=== PATIENT | female | born 1950 | race Caucasian/White ===

== ENCOUNTER 2019-06-13 13:17 | Inpatient (IN) | payer MEDICARE, OTHER ==
[~2019-06-13] VITALS: Ht 157.5 cm; Wt 120.2 kg
[2019-06-13] VITALS (8 sets, daily range): BP systolic 103–130; BP diastolic 58–73
--- NOTE | 2019-06-13 13:28 | NUR ---
PT BIB DAUGHTER C/O CHEST PAIN AND SOB SINCE SUNDAY. SENT BY PMD FOR EVAL. PT IS AAOX4, NOT IN RESPIRATORY DISTRESS ,HOOKED TO HANDY WORKER, KEPT RESTED AND COMFORTABLE, WILL CONTINUE TO MONITOR.
[2019-06-13] MEDS ORDERED: NITROGLYCERIN PACKET 1 GM PACKET TD ONE (13:30)
[2019-06-13] MEDS ORDERED: ASPIRIN 325 MG TABLET PO ONE (13:30)
--- NOTE | 2019-06-13 13:31 | NUR ---
SEEN AND EXAMINED BY DR. STEWARD.
--- NOTE | 2019-06-13 13:40 | NUR ---
IV LINE ESTABLISHED, BLOOD DRAWN AND SENT TO LAB.
[2019-06-13] MEDS ORDERED: NITROGLYCERIN PACKET 1 GM PACKET ONE (13:41)
[2019-06-13] MEDS ORDERED: ASPIRIN 325 MG TABLET ONE (13:41)
--- NOTE | 2019-06-13 13:45 | NUR ---
LIBRARY MEDIA SPECIALIST AT BEDSIDE FOR XRAY.
[2019-06-13 13:46] LABS: BASOPHILS # (AUTO) 0.1 /CMM (0.0-0.2); BASOPHILS % (AUTO) 0.8 % (0.0-2.0); HEMATOCRIT 46 % (33-45); HEMOGLOBIN 14.9 g/dL (11.5-14.8); LYMPHOCYTES # (AUTO) 1.8 /CMM (0.8-4.8); LYMPHOCYTES % (AUTO) 20.9 % (20.0-44.0); MEAN CORPUSCULAR HGB CONC 33 g/dl (31.0-36.0); MEAN CORPUSCULAR VOLUME 84 fL (82-100); MONOCYTES # (AUTO) 0.7 /CMM (0.1-1.30); MONOCYTES % (AUTO) 7.5 % (2.0-12.0); NEUTROPHILS % (AUTO) 67.8 % (43.0-81.0); PLATELET COUNT (AUTO) 203 /CMM (150-450); WHITE BLOOD COUNT (AUTO) 8.8 K/uL (4.3-11.0)
[2019-06-13 13:57] LABS: CALCIUM, SERUM 9.5 mg/dL (8.5-10.1); CARBON DIOXIDE 29 mmol/L (21-32); CHLORIDE 103 mmol/L (98-107); CREATININE 0.8 mg/dL (0.6-1.3); GLUCOSE 106 mg/dL (74-106); SODIUM SERUM 140 mmol/L (136-145); UREA NITROGEN, BLOOD 11 mg/dL (7-18)
[2019-06-13 14:09] LABS: ALANINE AMINOTRANSFERASE 14 U/L (12-78); ALBUMIN 3.4 g/dL (3.4-5.0); ALKALINE PHOSPHATASE 67 U/L (46-116); ASPARTATE AMINOTRANSFERASE 15 U/L (15-37); B-TYPE NATRIURETIC PEPTIDE 178 PG/ML (0-125); BILIRUBIN,DIRECT 0.1 mg/dL (0.0-0.2); BILIRUBIN,TOTAL 0.3 mg/dL (0.2-1.0)
[2019-06-13] MEDS ORDERED: SITA50TA PO (14:46)
[2019-06-13] MEDS ORDERED: METO50TA16 PO (14:46)
[2019-06-13] MEDS ORDERED: SIMV-46 PO (14:46)
[2019-06-13] MEDS ORDERED: CARB1TAB19 PO (14:46)
[2019-06-13] MEDS ORDERED: CETI-108 PO (14:46)
[2019-06-13] MEDS ORDERED: DICL100G16 TP (14:46)
[2019-06-13] MEDS ORDERED: FURO40TA5 PO (14:46)
[2019-06-13] MEDS ORDERED: CELE-85 PO (14:46)
[2019-06-13] MEDS ORDERED: DABI150C PO (14:46)
[2019-06-13] MEDS ORDERED: SEMA1PEN SQ (14:46)
[2019-06-13] MEDS ORDERED: AMLO1CAP6 PO (14:46)
[2019-06-13] MEDS ORDERED: METF-440 PO (14:46)
[2019-06-13] MEDS ORDERED: ERGO500014 PO (14:46)
[2019-06-13] MEDS ORDERED: FLUT1DIS3 IH (14:46)
[2019-06-13] MEDS ORDERED: ASPI-1152 PO (14:46)
[2019-06-13] MEDS ORDERED: OMEP20CA15 PO (14:46)
[2019-06-13] MEDS ORDERED: OXYB5TAB16 PO (14:46)
[2019-06-13] MEDS ORDERED: ALBUTEROL FS 2.5 MG/0.5 ML VIAL.NEB NEB ONE (15:00)
[2019-06-13] MEDS ORDERED: IPRATROPIUM NEB FS 0.5 MG/2.5 ML AMPUL.NEB NEB ONE (15:00)
[2019-06-13] MEDS ORDERED: DEXAMETHASONE SOD PHOSPHATE 10 MG/ML VIAL IV ONE (15:00)
[2019-06-13] MEDS ORDERED: DEXAMETHASONE SOD PHOSPHATE 10 MG/ML VIAL ONE (15:00)
[2019-06-13] MEDS ORDERED: IPRATROPIUM NEB FS 0.5 MG/2.5 ML AMPUL.NEB ONE (15:07)
[2019-06-13] MEDS ORDERED: ALBUTEROL FS 2.5 MG/0.5 ML VIAL.NEB ONE (15:07)
--- NOTE | 2019-06-13 15:11 | NUR ---
RT AT BEDSIDE FOR BREATHING TREATMENT.
--- NOTE | 2019-06-13 15:38 | NUR ---
PT IS WHEELED TO CT SCAN VIA [facility].
[2019-06-13] MEDS ORDERED: IOHEXOL-350 100 ML VIAL IV ONE (15:45)
[2019-06-13] MEDS ORDERED: CT SWABBABLE VALVE TRANS SET 1 EA INFUS.SET MC ONE (15:46)
[2019-06-13] MEDS ORDERED: IV NS 0.9% 250 ML IV ONE (15:46)
--- NOTE | 2019-06-13 16:05 | NUR ---
NURSING SUP 321-1.
[2019-06-13] MEDS ORDERED: IV NS 0.9% 500 ML BAG IV ONE (16:30)
--- NOTE | 2019-06-13 16:33 | NUR ---
NURSING SUP GAVE 259 ICU.
--- NOTE | 2019-06-13 16:43 | NUR ---
CALLED ICU FOR REPORT, RN NOT AVAILABLE WILL CALL BACK AFTER 5 TO 7 MINS PER ICU HOME HEALTH NURSE.
[2019-06-13] MEDS: ENOXAPARIN SODIUM 120 MG/0.8 ML DISP.SYRIN SQ SCH (16:47)
--- NOTE | 2019-06-13 16:58 | NUR ---
Report given to LILLIAN Baez ICU [id number] for BARRON.
--- NOTE | 2019-06-13 17:30 | NUR ---
RN NOTE 1720: Admitted 69y/o female patient from ED for bilateral PE. A/Ox3, Setswana speaking able to understand Kenyan well. Rendered skin assessment with Deena R, intact. Refused to remove bra and underwear. No CP, SOB noted, on 4LPM of O2 via oxymask, 93% sat. 2PIVs intact. Following up with ER nurse for the admitting orders. SR with PVCs 80's. 1730: S/E by dr. Gregg, with order for echo.
--- NOTE | 2019-06-13 18:17 | NUR ---
RN NOTE Spoke with Dr. York and given admitting orders, patient refused to have Nicotine patch, said she quit last month and never smoked since and verbalized does not need the patch. Placed on cardiac diet, ordered from kitchen.
[2019-06-13] MEDS ORDERED: DEXTROSE 50%-WATER 50 ML DISP.SYRIN IV PRN (18:30)
[2019-06-13] MEDS ORDERED: CLONIDINE HCL 0.1 MG TABLET PO PRN (18:30)
[2019-06-13] MEDS ORDERED: ALBUTEROL FS 2.5 MG/0.5 ML VIAL.NEB NEB PRN (18:30)
[2019-06-13] MEDS ORDERED: ONDANSETRON HCL/PF 4 MG/2 ML VIAL IV PRN (18:30)
[2019-06-13] MEDS ORDERED: IPRATROPIUM NEB FS 0.5 MG/2.5 ML AMPUL.NEB NEB PRN (18:30)
[2019-06-13] MEDS ORDERED: ACETAMINOPHEN 325 MG TABLET PO PRN (18:30)
[2019-06-13] MEDS: BLOOD SUGAR DIAGNOSTIC 1 EACH STRIP IN SCH ×2 (18:34→21:49)
--- NOTE | 2019-06-13 20:39 | NUR ---
ICU/RN OPENING NOTE RECEIVED PATIENT A/O X4 POLISH AND SAMI SPEAKER. CURRENTLY IN NO SIGN OF ANY DISTRESS. PATIENT IS IN 5L OF 02 WITH COOL AEROSOL SATURATING AT 90%. WITH NO SIGN OF ANY SOB. PATIENT IS SR HR AT 93 WITH OCCASIONAL PVC. IV ON THE RT HAND #20 S/L AND RAC #18. PATIENT ABLE TO AMBULATE SO BEDSIDE COMMODE AT BEDSIDE. ALL NEEDS MET WILL CONTINUE TO MONITOR PATIENT THROUGHOUT SHIFT.
[2019-06-13] MEDS: METOPROLOL TARTRATE 50 MG TABLET PO SCH (21:49)
[2019-06-13] MEDS: ATORVASTATIN 40 MG TABLET PO SCH (21:49)
[2019-06-13] MEDS: AMLODIPINE BESYLATE 5 MG TABLET PO SCH (21:49)
[2019-06-13] MEDS: INSULIN REGULAR, HUMAN 100 UNIT/ML 3 ML VIAL SQ PRN (21:59)
[2019-06-14] VITALS (20 sets, daily range): BP systolic 95–137; BP diastolic 53–76
[2019-06-14] MEDS ORDERED: ENOXAPARIN SODIUM 60 MG/0.6 ML DISP.SYRIN SQ ONE (05:33)
[2019-06-14] MEDS: ENOXAPARIN SODIUM 120 MG/0.8 ML DISP.SYRIN SQ SCH ×2 (05:35→17:11)
--- NOTE | 2019-06-14 07:22 | NUR ---
ICU/RN CLOSING PATIENT A/O X4 KISWAHILI AND SWEDISH SPEAKER. CURRENTLY IN NO SIGN OF ANY DISTRESS. PATIENT IS IN 6L OF 02 WITH COOL AEROSOL SATURATING AT 92%. WITH NO SIGN OF ANY SOB. PATIENT IS SR HR AT 82. IV ON THE RT HAND #20 S/L AND RAC #18. PATIENT ABLE TO AMBULATE TO BEDSIDE COMMODE AT BEDSIDE. ALL NEEDS MET. ENDORSED PATIENT TO MORNING SHIFT NURSE FOR BARRON.
[2019-06-14] MEDS: PANTOPRAZOLE 40 MG TABLET.DR PO SCH (07:50)
[2019-06-14] MEDS: BLOOD SUGAR DIAGNOSTIC 1 EACH STRIP IN SCH ×4 (07:51→21:55)
[2019-06-14] MEDS: FENOFIBRATE NANOCRYS (145 MG) 145 MG TABLET PO SCH (08:13)
[2019-06-14] MEDS: FLUTICASONE/VILANTEROL 1 EACH BLST.W.DEV IH SCH (08:13)
[2019-06-14] MEDS: METOPROLOL TARTRATE 50 MG TABLET PO SCH ×2 (08:14→21:10)
[2019-06-14] MEDS: AMLODIPINE BESYLATE 5 MG TABLET PO SCH (08:14)
[2019-06-14] MEDS: LISINOPRIL (10MG) 10 MG TABLET PO SCH (08:15)
[2019-06-14] MEDS: INSULIN REGULAR, HUMAN 100 UNIT/ML 3 ML VIAL SQ PRN ×3 (08:17→21:58)
[2019-06-14 10:36] LABS: ALBUMIN 3.2 g/dL (3.4-5.0); BILIRUBIN,TOTAL 0.3 mg/dL (0.2-1.0); CALCIUM, SERUM 9.7 mg/dL (8.5-10.1); POTASSIUM 3.9 mmol/L (3.5-5.1); TOTAL PROTEIN, SERUM 7.7 g/dL (6.4-8.2)
[2019-06-14 10:50] LABS: BASOPHILS % (AUTO) 0.1 % (0.0-2.0); HEMATOCRIT 45 % (33-45); HEMOGLOBIN 14.4 g/dL (11.5-14.8); LYMPHOCYTES # (AUTO) 1.1 /CMM (0.8-4.8); LYMPHOCYTES % (AUTO) 13.6 % (20.0-44.0); MEAN CORPUSCULAR HGB CONC 32 g/dl (31.0-36.0); MEAN CORPUSCULAR VOLUME 84 fL (82-100); MONOCYTES # (AUTO) 0.3 /CMM (0.1-1.30); MONOCYTES % (AUTO) 4.2 % (2.0-12.0); NEUTROPHILS # (AUTO) 6.7 /CMM (1.8-8.9); NEUTROPHILS % (AUTO) 82.1 % (43.0-81.0); PLATELET COUNT (AUTO) 234 /CMM (150-450); RED BLOOD CELL COUNT(AUTO) 5.35 MIL/uL (4.0-5.2); WHITE BLOOD COUNT (AUTO) 8.1 K/uL (4.3-11.0)
--- NOTE | 2019-06-14 13:25 | NUR ---
Called Dr. York to notify of patient's temp 99F oral + patient request for "medication to help her sleep". Received medication orders for ambien 10mg PO QHS, ativan 0.5mg PO PRN q8hr, azithromax 500mg daily x3 days and pulmonary consult
[2019-06-14] MEDS ORDERED: LORAZEPAM 0.5 MG TABLET PO PRN (14:00)
[2019-06-14] MEDS: AZITHROMYCIN 250 MG TABLET PO SCH (14:04)
--- NOTE | 2019-06-14 17:30 | NUR ---
patient transferred to TELE 112-2 per ACLS protocol with receiving RN July at bedside, attached patient to 5L O2 via nasal cannula, no SOB noted, belongings verified, dentures in mouth of patient at this time, ambulated to restroom, medications given to nurse, patient instructed to call for help, call light provided, bed alarm on, daughter aware of downgrade
--- NOTE | 2019-06-14 17:45 | NUR ---
STRETCHER AND DRIER NOTES RECEIVED PT FROM ICU VIA WHEELCHAIR AT 1735. PT IS AWAKE, A/OX4, AMBULATORY. SALVADOREAN SPEAKING BUT CAN UNDERSTAND AND SPEAK PAKISTANI. PT ON SUPPLEMENTARY OXYGEN AT 5L VIA NC, WITH NO ACUTE RESPIRATORY DISTRESS NOTED. PT DENIES ANY PAIN OR DISCOMFORT AT THIS TIME. HOOKED ON TELEMONITORING SR 88. PIVS TO R HAND G20 AND RACG18, BOTH FLUSHED WITH NS, INTACT AND OPERATIONAL. CALL LIGHT KEPT WITHIN REACH. PT KEPT COMFORTABLE IN BED. PT'S BED IN LOWEST, LOCKED POSITION WITH SR X2. WILL CONTINUE PLAN OF CARE.
--- NOTE | 2019-06-14 18:51 | NUR ---
BRUSH LOADER AND HANDLE ATTACHER CLOSING NOTES PT REMAIN IN BED, AWAKE, A/OX4. MONTSERRATIAN SPEAKING BUT CAN UNDERSTAND AND SPEAK LATVIAN. PT ON SUPPLEMENTARY OXYGEN AT 5L VIA NC, WITH NO ACUTE RESPIRATORY DISTRESS NOTED. PT DENIES ANY PAIN OR DISCOMFORT AT THIS TIME. ON TELEMONITORING SR 90. PIVS TO R HAND G20 AND RACG18, BOTH FLUSHED WITH NS, INTACT AND OPERATIONAL. ALL NEEDS AND CARE ATTENDED. CALL LIGHT KEPT WITHIN REACH. PT KEPT COMFORTABLE IN BED. PT'S BED IN LOWEST, LOCKED POSITION WITH SR X2. WILL ENDORSE TO INCOMING NIGHT NURSE FOR BARRON.
[2019-06-14] MEDS: ATORVASTATIN 40 MG TABLET PO SCH (21:11)
[2019-06-14] MEDS: ZOLPIDEM TARTRATE 10 MG TABLET PO PRN (22:10)
[2019-06-15] VITALS: BP 135/76
[2019-06-15 04:00] VITALS: BP_SYST 131; BP_SYST 135; BP_DIAS 69; BP_DIAS 76
[2019-06-15] MEDS: ENOXAPARIN SODIUM 120 MG/0.8 ML DISP.SYRIN SQ SCH (07:04)
[2019-06-15 08:00] VITALS: BP 135/80
[2019-06-15] MEDS: FENOFIBRATE NANOCRYS (145 MG) 145 MG TABLET PO SCH (08:14)
[2019-06-15] MEDS: LISINOPRIL (10MG) 10 MG TABLET PO SCH (08:14)
[2019-06-15] MEDS: BLOOD SUGAR DIAGNOSTIC 1 EACH STRIP IN SCH ×4 (08:14→21:43)
[2019-06-15] MEDS: METOPROLOL TARTRATE 50 MG TABLET PO SCH ×2 (08:15→21:14)
[2019-06-15] MEDS: PANTOPRAZOLE 40 MG TABLET.DR PO SCH (08:15)
[2019-06-15] MEDS: FLUTICASONE/VILANTEROL 1 EACH BLST.W.DEV IH SCH (08:16)
[2019-06-15] MEDS ORDERED: ANESTHESIA TRAY IN PYXIS 1 EA TRAY MC ONE (11:57)
[2019-06-15 12:00] VITALS: BP 130/70
[2019-06-15] MEDS: AZITHROMYCIN 250 MG TABLET PO SCH (15:25)
[2019-06-15 16:00] VITALS: BP 125/65
[2019-06-15] MEDS: DABIGATRAN ETEXILATE MESYLATE 150 MG CAPSULE PO SCH (17:45)
[2019-06-15] MEDS: INSULIN REGULAR, HUMAN 100 UNIT/ML 3 ML VIAL SQ PRN ×2 (17:46→21:46)
--- NOTE | 2019-06-15 19:00 | NUR ---
video game animator opening notes Received Pt from morning nurse. Pt is alert and orientedX4. Pt is laying in bed comfortably watching TV. Respiration is normal in 2 L NC. No SOB. No S/S of distress noted. IV sites at R hand # 20 is clean, intact, patent and SL. Tele monitor showed SR HR at 80. Pt is able to ambulate with a steady gait. Safety precautions is maintained. Bed at low position, brakes locked, side rails upX2 and call light is within reach. Will continue to monitor.
--- NOTE | 2019-06-15 19:35 | NUR ---
RECEIVED ORDER TO DO ABG ON PATIENT AFTER THEY HAVE BEEN ON ROOM AIR FOR 30 MINS. WHEN ENTERING THE ROOM PATIENT WAS ON OXYGEN. INFORMED MY RN THAT PT WAS DESATURATING TO 87 ON ROOM AIR. ABG NOT DONE AT THIS TIME. RN CONTACTING MD AT THIS TIME. CHARGE NURSE AWARE.
--- NOTE | 2019-06-15 19:40 | NUR ---
machine shop helper notes Called and Informed Dr. Woods regarding ABG order. Informed MD that Pt is on 2 L NC O2 SAT AT 92-95% right now. Per am nurse and RT, Pt can't be on room air 30 minutes to get ABG done. Pt desat to 87% right away. MD order to do ABG on 2 L NC stat. MD also order for case repairer that Pt has to be on oxygen at home when discharge because Pt can't tolerated room air. Charge nurse is aware and informed. Order read back. Order carried out. Will continue to monitor.
[2019-06-15 20:00] VITALS: BP 117/57
[2019-06-15 20:03] LABS: ABG BASE EXCESS 3.4 mmol/L; ABG OXYGEN SATURATION 88.9 % (92.0-98.5); ABG PCO2 43.8 mmHg (35.0-45.0); ABG PH 7.428 (7.350-7.450); ABG PO2 54.4 mmHg (75.0-100.0); AaDO2 93.6 mmHg; COHb 0.6 % (0.5-1.5); MetHb 0.5 % (0.0-1.5); O2Hb 87.9 % (94.0-97.0); SITE, ABG Right Radial; VENT MODE, BG Nasal Cannula
--- NOTE | 2019-06-15 20:12 | NUR ---
NEW ORDERS FOR ABG TO BE ON OXYGEN WERE PUT IN. ABG WAS DONE AT THIS TIME. WILL CONT TO MONITOR PT.
[2019-06-15] MEDS: ATORVASTATIN 40 MG TABLET PO SCH (21:13)
[2019-06-16] VITALS: BP 123/63
[2019-06-16] MEDS: ZOLPIDEM TARTRATE 10 MG TABLET PO PRN ×2 (00:29→22:35)
--- NOTE | 2019-06-16 00:29 | NUR ---
water reclamation systems operator notes Pt is complaining of having problem sleeping and requesting a sleeping pill. Administered ambien 10 mg as ordered for sleeping per Pt request. Safety precautions is maintained. Will continue to monitor.
[2019-06-16 04:00] VITALS: BP 113/63
--- NOTE | 2019-06-16 06:41 | NUR ---
wood and wood products labourer closing notes Pt is resting in bed comfortably. Pt is alert and orientedX4. Respiration is normal in 2 L NC. No SOB. No S/S of distress noted. IV sites at right hand # 20 is clean, intact, patent and SL. Tele monitor showed SR HR at 78. Routine meds were given as ordered. Kept Pt clean, dry and comfortable. Safety precautions is maintained. Bed at low position, brakes locked, side rails upX2 and call light is within reach. Will endorse to morning nurse for BARRON.
--- NOTE | 2019-06-16 07:25 | NUR ---
RN OPENING NOTES RECEIVED PATIENT IN BED, AWAKE, VERBALLY RESPONSIVE AND ABLE TO MAKE NEEDS KNOWN. DENIES ANY PAIN OR DISCOMFORT AT THE MOMENT. ON OXYGEN 2L VIA NASAL CANNULA, SATURATING 93%. NO SOB NOTED. ON TELE MONITOR HR 92. IV ACCESS ON R HAND #20, INTACT, PATENT AND FLUSHED WELL. SAFETY MEASURES IN PLACED, BED IN LOWEST POSITION AND LOCKED. CALL LIGHT WITHIN REACH. WILL CONTINUE TO MONITOR
[2019-06-16 07:56] LABS: BASOPHILS # (AUTO) 0.1 /CMM (0.0-0.2); BASOPHILS % (AUTO) 0.9 % (0.0-2.0); EOSINOPHILS % (AUTO) 2.8 % (0.0-6.0); HEMATOCRIT 47 % (33-45); LYMPHOCYTES # (AUTO) 1.8 /CMM (0.8-4.8); LYMPHOCYTES % (AUTO) 25.6 % (20.0-44.0); MEAN CORPUSCULAR HGB CONC 32 g/dl (31.0-36.0); MEAN CORPUSCULAR VOLUME 84 fL (82-100); MONOCYTES # (AUTO) 0.5 /CMM (0.1-1.30); MONOCYTES % (AUTO) 7.1 % (2.0-12.0); NEUTROPHILS # (AUTO) 4.6 /CMM (1.8-8.9); NEUTROPHILS % (AUTO) 63.6 % (43.0-81.0); PLATELET COUNT (AUTO) 214 /CMM (150-450); RED BLOOD CELL COUNT(AUTO) 5.57 MIL/uL (4.0-5.2); WHITE BLOOD COUNT (AUTO) 7.2 K/uL (4.3-11.0)
[2019-06-16 08:00] VITALS: BP 112/74
[2019-06-16] MEDS: BLOOD SUGAR DIAGNOSTIC 1 EACH STRIP IN SCH ×4 (08:01→22:27)
[2019-06-16 08:13] LABS: ALBUMIN 3.1 g/dL (3.4-5.0); BILIRUBIN,TOTAL 0.4 mg/dL (0.2-1.0); CREATININE 0.7 mg/dL (0.6-1.3); POTASSIUM 3.8 mmol/L (3.5-5.1); TOTAL PROTEIN, SERUM 7.2 g/dL (6.4-8.2)
[2019-06-16] MEDS: PANTOPRAZOLE 40 MG TABLET.DR PO SCH (08:13)
[2019-06-16 08:17] LABS: CALCIUM, SERUM 8.8 mg/dL (8.5-10.1)
[2019-06-16] MEDS: LISINOPRIL (10MG) 10 MG TABLET PO SCH (08:18)
[2019-06-16] MEDS: FENOFIBRATE NANOCRYS (145 MG) 145 MG TABLET PO SCH (08:18)
[2019-06-16] MEDS: METOPROLOL TARTRATE 50 MG TABLET PO SCH ×2 (08:18→22:27)
[2019-06-16] MEDS: DABIGATRAN ETEXILATE MESYLATE 150 MG CAPSULE PO SCH ×2 (08:19→18:00)
[2019-06-16] MEDS: FLUTICASONE/VILANTEROL 1 EACH BLST.W.DEV IH SCH (08:32)
[2019-06-16] MEDS: AZITHROMYCIN 250 MG TABLET PO SCH (13:17)
[2019-06-16 16:00] VITALS: BP 116/67
--- NOTE | 2019-06-16 19:30 | NUR ---
RN OPENING NOTES RECEIVED PATIENT ALERT AWAKE ORIENTED X4. BREATHING NORMAL NO SOB NOTED. RESPIRATION EVEN NON LABORED. SKIN WARM AND DRY TOT OUCH. LUNG SOUND CLEAR BILATERALLY. RT HAND #20 INTACT, PATENT AND FLUSHED WELL. CONT ON O2 2L/MIN VIA NC SATURATING 93%. SAFETY MEASURES IN PLACE, CALL LIGHT WITHIN REACH. BED IN LOW AND LOCKED POSITION. WILL CONT TO MONITOR.
--- NOTE | 2019-06-16 19:38 | NUR ---
RN CLOSING NOTES PATIENT IN BED, RESTING COMFORTABLY. IN NO APPARENT DISTRESS NOTED. DENIES ANY PAIN OR DISCOMFORT DURING DAY SHIFT. ON OXYGEN VIA NASAL CANNULA @2L , SATURATING WELL. NO SOB NOTED. IV ACCESS , INTACT , PATENT AND FLUSHED WELL. NO SIGNS OF INFILTRATION NOTED. SAFETY MEASURES IN PLACED. KEPT CLEANED AND DRY. ALL NEEDS MET. ENDORSED TO PM RN FOR BARRON.
[2019-06-16 20:00] VITALS: BP_SYST 111; BP_DIAS 58; BP_DIAS 62
[2019-06-16] MEDS: ATORVASTATIN 40 MG TABLET PO SCH (22:26)
--- NOTE | 2019-06-16 22:35 | NUR ---
RN NOTES PATIENT REPORTED UNABLE TO SLEEP REQUESTING FOR PRN SLEEPING PILL. AMBIEN 10MG PO GIVEN ORDERED. WILL CONT TO MONITOR AND REASSESS FOR EFFECTIVENESS. ALL SAFETY MEASURES IN PLACE. CALL LIGHT WITHIN REACH.
--- NOTE | 2019-06-16 23:35 | NUR ---
RN NOTE PATIENT IS SLEEPING COMFORTABLY BREATHING NORMAL NO SOB NOTED NO S/S OF DISTRESS NOTED. AMBIEN NOTED EFFECTIVE. SAFETY MEASURES ON PLACE. ALL NEEDS ATTENDED. CALL LIGHT WITHIN REACH.
[2019-06-17 04:00] VITALS: BP_SYST 127; BP_DIAS 127; BP_DIAS 67
[2019-06-17] MEDS: BLOOD SUGAR DIAGNOSTIC 1 EACH STRIP IN SCH ×2 (07:30→12:00)
[2019-06-17 07:54] LABS: ALBUMIN 3.1 g/dL (3.4-5.0); BILIRUBIN,TOTAL 0.5 mg/dL (0.2-1.0); CALCIUM, SERUM 8.9 mg/dL (8.5-10.1); CREATININE 0.7 mg/dL (0.6-1.3); MAGNESIUM 2.2 mg/dL (1.8-2.4); TOTAL PROTEIN, SERUM 7.2 g/dL (6.4-8.2)
[2019-06-17 08:00] VITALS: BP 133/74
--- NOTE | 2019-06-17 08:13 | NUR ---
MS RN NOTES PT IN BED. A/OX4. ON 2L WITH NC NO SOB NOTED O2 SAT 92%. SALINE LOCK ON RIGHT HAND INTACT AND FLUSHES WELL. REFUSING ACCU CHECK. PLAN OF CARE DISCUSSED WITH PT. BED LOCKED IN LOWEST POSITION. WILL CONT TO MONITOR.
[2019-06-17] MEDS: LISINOPRIL (10MG) 10 MG TABLET PO SCH (08:31)
[2019-06-17] MEDS: FENOFIBRATE NANOCRYS (145 MG) 145 MG TABLET PO SCH (08:32)
[2019-06-17] MEDS: PANTOPRAZOLE 40 MG TABLET.DR PO SCH (08:32)
[2019-06-17] MEDS: METOPROLOL TARTRATE 50 MG TABLET PO SCH (08:33)
[2019-06-17] MEDS: FLUTICASONE/VILANTEROL 1 EACH BLST.W.DEV IH SCH (08:36)
[2019-06-17] MEDS: DABIGATRAN ETEXILATE MESYLATE 150 MG CAPSULE PO SCH (08:36)
[2019-06-17 09:00] VITALS: BP 133/74
[2019-06-17] MEDS ORDERED: LISI10TA5 PO (09:42)
[2019-06-17] MEDS ORDERED: DABI150C PO ×2 (09:42→09:50)
[2019-06-17] MEDS ORDERED: ZOLP10TA2 PO (09:42)
[2019-06-17] MEDS ORDERED: METO50TA16 PO (09:42)
[2019-06-17] MEDS ORDERED: FLUT1BLS IH (09:42)
[2019-06-17] MEDS ORDERED: ATOR40TA PO (09:42)
[2019-06-17] MEDS ORDERED: PANT40TA2 PO (09:42)
[2019-06-17] MEDS ORDERED: ALBU2.5V13 NEB (09:42)
[2019-06-17] MEDS ORDERED: IPRA0.2S9 NEB (09:42)
[2019-06-17] MEDS ORDERED: ACET325T53 PO (09:42)
[2019-06-17] MEDS ORDERED: Lorazepam PO (09:42)
--- NOTE | 2019-06-17 09:54 | NUR ---
MS SNYDER NOTES DR LUNA AT BED SIDE WITH ORDER PT TO DISCHARGE HOME. O2 SAT IN R/A 86%. WE WILL COORDINATE WITH THE TIPPLE SUPERVISOR. WILL FOLLOW UP Addendum: 06/17/19 at 1155 by JOLENE KHOURY RN ON RA SAT 86% ,RESTING COMFORTABLY .
[2019-06-17] MEDS ORDERED: ACETAMINOPHEN 325 MG TABLET PO PRN (10:00)
[2019-06-17] MEDS ORDERED: FLUTICASONE/VILANTEROL 1 EACH BLST.W.DEV IH SCH (10:00)
[2019-06-17] MEDS ORDERED: DABIGATRAN ETEXILATE MESYLATE 150 MG CAPSULE PO SCH ×2 (10:00→17:00)
[2019-06-17] MEDS ORDERED: LISINOPRIL (10MG) 10 MG TABLET PO SCH (10:00)
[2019-06-17] MEDS ORDERED: PANTOPRAZOLE 40 MG TABLET.DR PO SCH (10:00)
[2019-06-17] MEDS ORDERED: ALBUTEROL FS 2.5 MG/0.5 ML VIAL.NEB NEB PRN (10:00)
[2019-06-17] MEDS ORDERED: IPRATROPIUM NEB FS 0.5 MG/2.5 ML AMPUL.NEB NEB PRN (10:00)
[2019-06-17 10:23] LABS: BASOPHILS % (AUTO) 0.6 % (0.0-2.0); EOSINOPHILS % (AUTO) 3.3 % (0.0-6.0); HEMATOCRIT 47 % (33-45); HEMOGLOBIN 15.2 g/dL (11.5-14.8); LYMPHOCYTES # (AUTO) 1.7 /CMM (0.8-4.8); LYMPHOCYTES % (AUTO) 23.9 % (20.0-44.0); MEAN CORPUSCULAR HGB CONC 33 g/dl (31.0-36.0); MEAN CORPUSCULAR VOLUME 84 fL (82-100); MONOCYTES # (AUTO) 0.6 /CMM (0.1-1.30); NEUTROPHILS # (AUTO) 4.6 /CMM (1.8-8.9); NEUTROPHILS % (AUTO) 64.2 % (43.0-81.0); PLATELET COUNT (AUTO) 226 /CMM (150-450); RED BLOOD CELL COUNT(AUTO) 5.56 MIL/uL (4.0-5.2); WHITE BLOOD COUNT (AUTO) 7.2 K/uL (4.3-11.0)
[2019-06-17] MEDS: AZITHROMYCIN 250 MG TABLET PO SCH (13:06)
--- NOTE | 2019-06-17 13:45 | NUR ---
MS RN NOTE REFUSED TO DO ABG PER RT
--- NOTE | 2019-06-17 13:58 | NUR ---
MS RN NOTE STILL AWAITING FOR O2 DELIVERING
--- NOTE | 2019-06-17 14:20 | NUR ---
RT Pt refused room air ABG, she state she did not want to be poked. Mary SNYDER and Dr. Garza notified and aware. Dr. Garza requested to obtain room air SpO2 at rest, while walking, and after walking. SpO2 87% at rest, SpO2 90% while walking, and SpO2 84% post walk on room air.
--- NOTE | 2019-06-17 14:49 | NUR ---
MS RN NOTES WAITING FOR 02 TO BE DELIVERED. O2 SAT IN R/A IS 84%. PENDING DISCHARGE. DR. TROTTER IS AWARE
--- NOTE | 2019-06-17 15:27 | NUR ---
MS RN NOTE O2 WAS DELIVERED . CALLED DAUGHTER OF PATIENT TO FRONT OFFICE CLERK . D\C INSTRUCTION GIVEN UNDERSTOOD, EXPLAINED HOW TO USE O2 AND F\U WITH PRIMARY CARE DOCTOR, AND INSTRUCTED HOW TO TAKE HOME AND NEW MEDICATION AND POSSIBLE SIDE EFFECTS , HL REMOVED DRY DRESSING APPLIED NO BLEEDING NOTED , BELONGING CHECKED, CALLED PATIENT PHARMACY ,PX IS READY TO PICK IT UP
--- NOTE | 2019-06-17 16:03 | NUR ---
MS SNYDER NOTES TOOK PT TO THE LOBBY VIA WHEELCHAIR. PT IS IN STABLE CONDITION. DAUGHTER WAITING IN THE LOBBY. Addendum: 06/17/19 at 1652 by JOLENE KHOURY RN MS SNYDER NOTES ASSISTED PT TO DAUGHTERS CAR WITH 02 AT 2L VIA NC. NO SOB NOTED
[2019-06-17] MEDS ORDERED: METOPROLOL TARTRATE 50 MG TABLET PO SCH (21:00)
[2019-06-17] MEDS ORDERED: ZOLPIDEM TARTRATE 10 MG TABLET PO PRN (22:00)
[2019-06-17] MEDS ORDERED: ATORVASTATIN 40 MG TABLET PO SCH (22:00)
[2019-06-18] MEDS ORDERED: PANTOPRAZOLE 40 MG TABLET.DR PO SCH (07:30)
[2019-06-18] MEDS ORDERED: LISINOPRIL (10MG) 10 MG TABLET PO SCH (09:00)
== END 2019-06-17 15:55 | disposition home or self-care (01) | DRG 175 ==
LOC: ER 13:18 → TELE 16:17 → ICU 16:38 → TELE1 06-14 17:54 → MEDSG1 06-16 10:24
PROVIDERS: ADMIT Family Medicine; ATTEND Family Medicine
DX: I26.99 Other pulmonary embolism without acute cor pulmonale (principal); J96.01 Acute respiratory failure with hypoxia; I82.813 Embolism and thrombosis of superficial veins of lower extremities, bilateral; Z68.42 Body mass index [BMI] 45.0-49.9, adult; E11.9 Type 2 diabetes mellitus without complications; E78.5 Hyperlipidemia, unspecified; I10 Essential (primary) hypertension; F32.9 Major depressive disorder, single episode, unspecified; F41.9 Anxiety disorder, unspecified; K59.00 Constipation, unspecified; R32 Unspecified urinary incontinence; Z86.718 Personal history of other venous thrombosis and embolism; J44.9 Chronic obstructive pulmonary disease, unspecified; M17.0 Bilateral primary osteoarthritis of knee; M16.0 Bilateral primary osteoarthritis of hip; M19.012 Primary osteoarthritis, left shoulder; M19.011 Primary osteoarthritis, right shoulder; F17.210 Nicotine dependence, cigarettes, uncomplicated; E66.01 Morbid (severe) obesity due to excess calories; K21.9 Gastro-esophageal reflux disease without esophagitis
CPT/HCPCS: 36415; 36600; 71045-TC; 71046; 74018; 80048-TC; 80053-TC; 80076-TC; 82803-TC; 82962-TC; 83735-TC; 83880; 84484-TC; 85025-TC; 87081-TC; 93307-TC; 93970-TC; G0378; J1100; J1650; J1815; J7040; J7050; Q9967

== ENCOUNTER 2019-08-24 11:59 | Inpatient (IN) | payer MEDICARE, OTHER ==
[~2019-08-24] VITALS: Ht 165.1 cm; Wt 102.1 kg
[~2019-08-24 11:59] MED LIST: ACET325T53 PO; ALBU2.5V13 NEB; ATOR40TA PO; DABI150C PO; FLUT1BLS IH; IPRA0.2S9 NEB; LISI10TA5 PO; Lorazepam PO; METO50TA16 PO; PANT40TA2 PO; ZOLP10TA2 PO
[2019-08-24] MEDS ORDERED: HYDROCODONE/APAP 10/325MG 1 EA TABLET ONE (12:15)
--- NOTE | 2019-08-24 12:15 | NUR ---
SEEN AND EXAMINED BY .
--- NOTE | 2019-08-24 12:20 | NUR ---
SPOKED TO PT DAUGHTER DIXON [phone]
[2019-08-24] MEDS ORDERED: HYDROCODONE/APAP 10/325MG 1 EA TABLET PO ONE (12:30)
--- NOTE | 2019-08-24 12:34 | NUR ---
Patient awake alert moaning ,medication forPain given by Cn patient made aware paln of care continue to monitor
--- NOTE | 2019-08-24 13:06 | NUR ---
CALLED HOUSE SUP FOR MED SURG BED.
--- NOTE | 2019-08-24 13:09 | NUR ---
CALLED ORTHO MASKING MACHINE FEEDER STANLEY DAVID
--- NOTE | 2019-08-24 13:14 | NUR ---
Obtained heplock Left hand 2 G .
[2019-08-24] MEDS ORDERED: IPRA3AMP23 IH (13:25)
[2019-08-24] MEDS ORDERED: DABI150C PO (13:25)
[2019-08-24] MEDS ORDERED: ZOLP10TA2 PO (13:25)
[2019-08-24] MEDS ORDERED: AMLO1CAP6 PO (13:25)
[2019-08-24] MEDS ORDERED: SIMV-46 PO (13:25)
[2019-08-24] MEDS ORDERED: ASPI-1169 PO (13:25)
[2019-08-24] MEDS ORDERED: FLUT1BLS IH (13:25)
[2019-08-24] MEDS ORDERED: CHOL500052 PO (13:25)
[2019-08-24] MEDS ORDERED: ACET-868 PO (13:25)
[2019-08-24] MEDS ORDERED: MORPHINE SULFATE INJ 4 MG/ML DISP.SYRIN ONE (13:28)
[2019-08-24] MEDS ORDERED: ONDANSETRON HCL/PF 4 MG/2 ML VIAL ONE (13:29)
[2019-08-24] MEDS ORDERED: MORPHINE SULFATE INJ 2 MG/ML DISP.SYRIN IV ONE (13:30)
[2019-08-24] MEDS ORDERED: ONDANSETRON HCL/PF - ER 4 MG/2 ML VIAL IV ONE (13:30)
[2019-08-24] MEDS ORDERED: METO25TA20 PO (13:31)
[2019-08-24] MEDS ORDERED: SEMA1PEN SQ (13:31)
[2019-08-24] MEDS ORDERED: OMEP20CA15 PO (13:31)
[2019-08-24] MEDS ORDERED: DICL100G34 TD (13:31)
--- NOTE | 2019-08-24 13:37 | NUR ---
Blood draw obtained send to lab
--- NOTE | 2019-08-24 13:38 | NUR ---
REPORT GIVEN TO LILLIAN MAHAJAN FOR BARRON.
[2019-08-24 13:49] LABS: BASOPHILS # (AUTO) 0.1 /CMM (0.0-0.2); BASOPHILS % (AUTO) 0.8 % (0.0-2.0); EOSINOPHILS % (AUTO) 0.6 % (0.0-6.0); HEMATOCRIT 48 % (33-45); HEMOGLOBIN 15.7 g/dL (11.5-14.8); LYMPHOCYTES # (AUTO) 1.1 /CMM (0.8-4.8); LYMPHOCYTES % (AUTO) 11.9 % (20.0-44.0); MEAN CORPUSCULAR HGB CONC 33 g/dl (31.0-36.0); MEAN CORPUSCULAR VOLUME 84 fL (82-100); MONOCYTES # (AUTO) 0.5 /CMM (0.1-1.30); MONOCYTES % (AUTO) 5.2 % (2.0-12.0); NEUTROPHILS # (AUTO) 7.3 /CMM (1.8-8.9); NEUTROPHILS % (AUTO) 81.5 % (43.0-81.0); PLATELET COUNT (AUTO) 254 /CMM (150-450); RED BLOOD CELL COUNT(AUTO) 5.78 MIL/uL (4.0-5.2); WHITE BLOOD COUNT (AUTO) 8.9 K/uL (4.3-11.0)
[2019-08-24 13:56] LABS: CALCIUM, SERUM 9.8 mg/dL (8.5-10.1); CREATININE 0.9 mg/dL (0.6-1.3); POTASSIUM 3.7 mmol/L (3.5-5.1)
--- NOTE | 2019-08-24 14:15 | NUR ---
Patient admitted from ER accompanied by staff and on [facility], c/o right shoulder pain due to transferred to the bed from [facility]. Noticed scratched skin on right arm, picture taken also jewelry pictures. Call light within reach, will continue to monitor.
[2019-08-24 16:00] VITALS: BP 142/78
[2019-08-24] MEDS ORDERED: ZOLPIDEM TARTRATE 10 MG TABLET PO PRN (17:00)
[2019-08-24] MEDS ORDERED: ZOLPIDEM TARTRATE 5 MG TABLET PO PRN (17:00)
[2019-08-24] MEDS ORDERED: ACETAMINOPHEN 325 MG TABLET PO PRN (17:00)
[2019-08-24] MEDS: IPRATROPIUM NEB FS 0.5 MG/2.5 ML AMPUL.NEB NEB SCH ×2 (17:00→19:17)
[2019-08-24] MEDS ORDERED: POLYETHYLENE GLYCOL 3350 17 GM POWD.PACK PO PRN (17:00)
[2019-08-24] MEDS ORDERED: ACETAMINOPHEN 650 MG/20.3 ML UDC NG PRN (17:00)
[2019-08-24 17:29] LABS: MAGNESIUM 1.9 mg/dL (1.8-2.4)
[2019-08-24] MEDS: INSULIN ASPART/LISPRO 100 UNIT/ML CARTRIDGE SQ SCH (17:30)
[2019-08-24] MEDS: ALBUTEROL FS 2.5 MG/3 ML VIAL.NEB NEB SCH ×2 (17:30→19:17)
[2019-08-24] MEDS: SIMVASTATIN 20 MG TABLET PO SCH (17:41)
[2019-08-24 17:42] LABS: THYROID STIMULATING HORMONE 1.709 uIU/mL (0.358-3.74)
[2019-08-24] MEDS: DOCUSATE SODIUM 250 MG CAPSULE PO SCH (17:42)
[2019-08-24] MEDS: AMLODIPINE BESYLATE 5 MG TABLET PO SCH (17:42)
[2019-08-24] MEDS: METOPROLOL TARTRATE 25 MG TABLET PO SCH ×2 (17:42→20:20)
--- NOTE | 2019-08-24 18:03 | NUR ---
RT NOTE PT REFUSED BREATHING TX AT MOMENT. NO DISTRESS NOTED. PT AWAKE AND ALERT. RN NOTIFIED.
[2019-08-24 18:19] LABS: ABG OXYGEN SATURATION 91.5 % (92.0-98.5); ABG PCO2 49.1 mmHg (35.0-45.0); ABG PH 7.389 (7.350-7.450); ABG PO2 59.5 mmHg (75.0-100.0); AaDO2 31.4 mmHg; COHb 1.6 % (0.5-1.5); SITE, ABG Right Radial; VENT MODE, BG RA
--- NOTE | 2019-08-24 18:30 | NUR ---
Tele/RN Closing note Patient in bed comfortably, informed Dr. wilkerson for result of ABG. Pt c/o right shoulder pain with move. Skin is warm to touch, kept clean/dry,intact IV site. Respiratory even and unlabored with room air. Keep in locked bed and low position, elevated head of bed for secure airway. Call light within reach, will endorse operation shift supervisor.
[2019-08-24] MEDS: FLUTICASONE/VILANTEROL 1 EACH BLST.W.DEV IH SCH (18:53)
[2019-08-24] MEDS: ENOXAPARIN SODIUM 120 MG/0.8 ML DISP.SYRIN SQ SCH (18:55)
--- NOTE | 2019-08-24 19:30 | NUR ---
RN OPEN NOTES PT LAYING IN BED. BED IS IN LOWEST LOCKED POSITION WITH SIDE RAILS UP X3, SEMI FOWLERS. CALL LIGHT IS WITHIN REACH. PAIN ON R SHOULDER HOWEVER DOES NOT WANT PAIN MEDIATION AT THE MOMENT. NO SIGNS OF RESPIRATORY DISTRESS. WILL CONTINUE TO MONITOR.
--- NOTE | 2019-08-24 19:47 | NUR ---
RT NOTE PT REFUSED BREATHING TX AT MOMENT. NO DISTRESS NOTED. PT AWAKE AND ALERT. RN NOTIFIED.
[2019-08-24 20:00] VITALS: BP 139/69
[2019-08-24 20:17] VITALS: BP 139/69
[2019-08-24] MEDS: MORPHINE SULFATE INJ 2 MG/ML DISP.SYRIN IV PRN (20:20)
--- NOTE | 2019-08-24 23:00 | NUR ---
RN NOTES COLLECTED URINE FOR URINALYSIS. WILL CONTINUE TO MONITOR.
[2019-08-25] MEDS: IPRATROPIUM NEB FS 0.5 MG/2.5 ML AMPUL.NEB NEB SCH ×6 (00:35→23:30)
--- NOTE | 2019-08-25 06:41 | NUR ---
RN CLOSE NOTES PATIENT IS LAYING IN BED. A/O X3-4. NO SOB/ ACUTE RESPIRATORY DISTRESS NOTED. IV ON L HAND #20G IS PATENT AND INTACT. BED IS IN LOWEST LOCKED POSITION WITH SIDE RAILS UP X3, SEMI FOWLERS. CALL LIGHT IS WITHIN REACH. WILL ENDORSE TO AM NURSE.
--- NOTE | 2019-08-25 07:08 | NUR ---
MS RN OPENING NOTES RECEIVED PT IN BED AWAKE AT THIS TIME. AO X3-4. SO S/S OF ANY ACUTE DISTRESS. NO C/O PAIN AT THIS TIME. RESPIRATIONS EVEN AND UNLABORED WITH EQUAL RISE AND FALL IN CHEST. PT ON 2LPM OXYGEN VIA NC. IV ACCESS TO LHAND G#20 INTACT AND PATENT. BED IN LOWEST LOCKED POSITION WITH SIDE RAILS UP X3, HOB ELEVATED TO SEMI FOWLERS POSITION. CALL LIGHT WITHIN REACH. WILL CONTINUE TO MONITOR.
[2019-08-25 07:10] LABS: BASOPHILS % (AUTO) 0.4 % (0.0-2.0); EOSINOPHILS % (AUTO) 1.4 % (0.0-6.0); HEMATOCRIT 46 % (33-45); HEMOGLOBIN 14.9 g/dL (11.5-14.8); LYMPHOCYTES # (AUTO) 1.8 /CMM (0.8-4.8); LYMPHOCYTES % (AUTO) 21.8 % (20.0-44.0); MEAN CORPUSCULAR HGB CONC 33 g/dl (31.0-36.0); MEAN CORPUSCULAR VOLUME 83 fL (82-100); MONOCYTES # (AUTO) 0.5 /CMM (0.1-1.30); MONOCYTES % (AUTO) 6.2 % (2.0-12.0); NEUTROPHILS # (AUTO) 5.7 /CMM (1.8-8.9); NEUTROPHILS % (AUTO) 70.2 % (43.0-81.0); PLATELET COUNT (AUTO) 253 /CMM (150-450); RED BLOOD CELL COUNT(AUTO) 5.55 MIL/uL (4.0-5.2); WHITE BLOOD COUNT (AUTO) 8.1 K/uL (4.3-11.0)
[2019-08-25 07:23] LABS: ALBUMIN 3.4 g/dL (3.4-5.0); BILIRUBIN,TOTAL 0.6 mg/dL (0.2-1.0); CALCIUM, SERUM 9.1 mg/dL (8.5-10.1); CREATININE 0.8 mg/dL (0.6-1.3); POTASSIUM 4.1 mmol/L (3.5-5.1); TOTAL PROTEIN, SERUM 8.3 g/dL (6.4-8.2)
[2019-08-25] MEDS: PANTOPRAZOLE 40 MG TABLET.DR PO SCH (07:52)
[2019-08-25] MEDS: INSULIN ASPART/LISPRO 100 UNIT/ML CARTRIDGE SQ SCH ×2 (08:13→16:50)
[2019-08-25 08:29] VITALS: BP 141/70
[2019-08-25 08:50] LABS: APPEARANCE,URINE TURBID (CLEAR); BILIRUBIN,URINE NEGATIVE (NEGATIVE); BLOOD, URINE NEGATIVE Ery/uL (NEGATIVE); COLOR,URINE YELLOW (YELLOW); KETONES,URINE NEGATIVE (NEGATIVE); LEUKOCYTE ESTERASE ,URINE NEGATIVE (NEGATIVE); NITRITE, URINE NEGATIVE (NEGATIVE); PROTEIN,URINE NEGATIVE (NEGATIVE); UGLUCOSE NEGATIVE (NEGATIVE); UROBILINOGEN,URINE 0.2 EU/dL (0.2)
[2019-08-25] MEDS: AMLODIPINE BESYLATE 5 MG TABLET PO SCH (09:18)
[2019-08-25] MEDS: METOPROLOL TARTRATE 25 MG TABLET PO SCH ×2 (09:19→20:40)
[2019-08-25] MEDS: FLUTICASONE/VILANTEROL 1 EACH BLST.W.DEV IH SCH (09:19)
[2019-08-25] MEDS: DOCUSATE SODIUM 250 MG CAPSULE PO SCH ×2 (09:19→16:54)
[2019-08-25] MEDS: ENOXAPARIN SODIUM 120 MG/0.8 ML DISP.SYRIN SQ SCH ×2 (09:25→20:40)
[2019-08-25 09:35] LABS: RBC,URINE NONE SEEN /HPF (0-2); WBC,URINE NONE SEEN /HPF (0-3)
[2019-08-25 09:36] LABS: BACTERIA,URINE Rare /HPF (None Seen); CALCIUM OXALATE CRYSTALS,UR Rare /HPF (None Seen); SQUAMOUS EPITHELIAL CELL,UR Rare /HPF (None Seen); URINE AMORPHOUS URATE Many /HPF (None Seen)
[2019-08-25] MEDS: ALBUTEROL HALF STRENGTH 1.25 MG/3 ML VIAL.NEB NEB SCH ×4 (10:45→23:30)
[2019-08-25] MEDS: MORPHINE SULFATE INJ 2 MG/ML DISP.SYRIN IV PRN ×3 (10:59→23:32)
--- NOTE | 2019-08-25 16:50 | NUR ---
PER DOCTOR JEREMY, INFORM PT'S FAMILY TO TAKE JEWELRY HOME. PT'S DAUGHTER, DIXON INFORMED AND WILL BE STOPPING BY TO VISUAL EFFECTS ARTIST JEWELRY. WILL CONTINUE WITH PLAN OF CARE
[2019-08-25 17:27] VITALS: BP 114/60
--- NOTE | 2019-08-25 17:29 | NUR ---
PT JEWELRY OF A PAIR OF (YELLOW) EARRING, A YELLOW NECKLACE, A WHITE BRACELET AND TWO RINGS PICKED UP BY DAUGHTER, DIXON AT THIS TIME PER DR ZUÑIGA'S ORDER.
[2019-08-25] MEDS: SIMVASTATIN 20 MG TABLET PO SCH (17:44)
--- NOTE | 2019-08-25 17:59 | NUR ---
DR ZUÑIGA ORDERED DOPPLER VEIN MAPPING. ELIZABETH ECHO-HUMAN RESOURCES PARTNER REQUESTED FOR CLARIFICATION. DR ZUÑIGA WAS MADE AWARE. PER DR CERVANTES, CHANGE ORDERS TO DUPLEX VENOUS UPPER EXTREMITY RIGHT. ORDERS CARRIED OUT. WILL CONTINUE TO MONITOR.
--- NOTE | 2019-08-25 19:00 | NUR ---
MS RN CLOSING NOTES PT IN BED AWAKE AT THIS TIME. AO X3-4. PATIENT REMAINED STABLE THROUGH OUT SHIFT. SO S/S OF ANY ACUTE DISTRESS. NO C/O PAIN AT THIS TIME. RESPIRATIONS EVEN AND UNLABORED WITH EQUAL RISE AND FALL IN CHEST. PT ON 2LPM OXYGEN VIA NC. PT KEPT CLEAN AND DRY. ALL CARE, AND MEDICATIONS ADMINISTERED PER ORDER. BED IN LOWEST LOCKED POSITION WITH SIDE RAILS UP X3, HOB ELEVATED TO SEMI FOWLERS POSITION. CALL LIGHT WITHIN REACH. WILL ENDORSE TO FIELD SUPERINTENDENT NURSE FOR BARRON
--- NOTE | 2019-08-25 19:30 | NUR ---
MS RN OPENING NOTES RECEIVED PATIENT RESTING IN BED COMFORTABLY; A/OX3; BREATHING EVEN AND UNLABORED; PATIENT TOLERATING 2L NC WELL; NO SOB NOTED; L HAND 20G SL INTACT AND PATENT; FLUSHING WELL; NO S/S OF REDNESS OR INFILTRATION NOTED; PATIENT AWARE OF SURGERY IN AM; WILL KEEP PATIENT NPO AFTER MIDNIGHT; SAFETY PRECAUTIONS IMPLEMENTED; BED LOCKED IN LOW POSITION; SIDE RAILS X2; CALL LIGHT WITHIN REACH; WILL CONT TO MONITOR
[2019-08-25 20:00] VITALS: BP 139/73
--- NOTE | 2019-08-25 20:10 | NUR ---
MS RN NOTES PATIENT UNABLE TO SIGN CONSENT D/T R SHOULD FX; PATIENT IS RIGHT HANDED AND HAS DIFFICULTY SIGNING PAPERWORK; SPOKE WITH PATIENT DAUGHTER (DIXON) REGARDING PATIENT PROCEDURE TOMORROW AM; DAUGHTER CONSENTED TO PROCEDURE, ANESTHESIA AND POSSIBLE BLOOD TRANSFUSION IF NEEDED; WITNESSED BY INDUSTRIAL DESIGNERLILLIAN PORTILLO; CONSENTS SIGNED AND FILED IN PATIENT BINDER; WILL CONT TO MONITOR
--- NOTE | 2019-08-25 20:40 | NUR ---
MS RN NOTES HOLDING LOVENOX; PATIENT SCHEDULED SURGERY IN AM; WILL CONT TO MONITOR
--- NOTE | 2019-08-25 22:01 | NUR ---
MS RN NOTES PATIENT REQUESTED AMBIEN TO HELP HER SLEEP; PATIENT REPORTED SHE IS UNABLE TO SLEEP D/T HEARING ANOTHER PATIENT SCREAMING; SPOKE WITH LEXIE REGARDING PATIENT REQUEST; ORDERED AMBIEN 5MG PO, PRN HS; CALLED ACCOUNT ADVISOR PHARMACY TO VERIFY; WILL ADMINISTER PER MD ORDER ONCE VERIFIED; PATIENT AWARE OF SURGERY IN AM AND IS AWARE SHE WILL BE NPO MIDNIGHT; WILL CONT TO MONITOR
[2019-08-25] MEDS: ZOLPIDEM TARTRATE 5 MG TABLET PO PRN (22:18)
[2019-08-26] MEDS: IPRATROPIUM NEB FS 0.5 MG/2.5 ML AMPUL.NEB NEB SCH ×6 (00:38→20:33)
[2019-08-26] MEDS: ALBUTEROL HALF STRENGTH 1.25 MG/3 ML VIAL.NEB NEB SCH ×6 (00:38→20:33)
--- NOTE | 2019-08-26 06:37 | NUR ---
MS RN CLOSING NOTES PATIENT RESTING IN BED COMFORTABLY; A/OX3; BREATHING EVEN AND UNLABORED; NO SOB NOTED; PATIENT TOLERATING ROOM AIR WELL; ABLE TO MAKE NEEDS KNOWN; NPO STATUS MAINTAINED; L HAND #20 SL INTACT AND PATENT; FLUSHING WELL; NO S/S OF REDNESS OR INFILTRATION; ALL NEEDS RENDERED; SAFETY PRECAUTIONS IN PLACE; BED LOCKED IN LOW POSITION; SIDE RAILS X2; CALL LIGHT WITHIN REACH; WILL ENDORSE BARRON TO ONCOMING SHIFT
[2019-08-26] MEDS: PANTOPRAZOLE 40 MG TABLET.DR PO SCH (07:30)
--- NOTE | 2019-08-26 07:37 | NUR ---
RN OPENING NOTE Patient is resting in bed, A/O x4, showing no signs of acute distress or SOB, saturating >95% on 2L NC. Patient has no complaints of pain at this time. IV line in the left hand #20g is clean and intact s/l. Patient is NPO due to possible right transverse arthroplasty with Dr. Cevallos, time of surgery is unknown. Will follow-up with OR. Bed is in lowest position, side rails x3 in upright position, call light is within reach, fall safety and aspiration precautions enforced. Will continue with plan of care.
[2019-08-26 08:00] VITALS: BP 132/76
[2019-08-26] MEDS: INSULIN ASPART/LISPRO 100 UNIT/ML CARTRIDGE SQ SCH ×2 (08:00→18:12)
[2019-08-26] MEDS: AMLODIPINE BESYLATE 5 MG TABLET PO SCH ×3 (08:55→13:42)
[2019-08-26] MEDS: FLUTICASONE/VILANTEROL 1 EACH BLST.W.DEV IH SCH (08:55)
[2019-08-26] MEDS: ENOXAPARIN SODIUM 120 MG/0.8 ML DISP.SYRIN SQ SCH ×2 (08:56→21:49)
[2019-08-26] MEDS: METOPROLOL TARTRATE 25 MG TABLET PO SCH ×4 (08:56→21:37)
[2019-08-26] MEDS: DOCUSATE SODIUM 250 MG CAPSULE PO SCH ×2 (08:56→18:15)
--- NOTE | 2019-08-26 09:17 | NUR ---
RN NOTE Patient refused AM medications. Patient remains NPO due to possible surgery today.
[2019-08-26] MEDS: MORPHINE SULFATE INJ 2 MG/ML DISP.SYRIN IV PRN ×2 (10:47→15:50)
--- NOTE | 2019-08-26 13:49 | NUR ---
RN NOTE Patient called and stated she is not feeling well, stated she feels her heart is beating fast. BP is 147/89, HR 105. AM blood pressure medications given. Patient is currently laying in bed, will continue to monitor.
[2019-08-26 16:00] VITALS: BP_SYST 126; BP_SYST 136; BP_DIAS 80
--- NOTE | 2019-08-26 16:04 | NUR ---
RN NOTE Patient is complaining 10/10 pain in the right shoulder, states that the morphine 2mg is not releiving her pain. Called Dr. Guzman's office and reported to him about the patient's concern, he stated no new orders to change the pain medication.
[2019-08-26] MEDS: SIMVASTATIN 20 MG TABLET PO SCH (18:15)
--- NOTE | 2019-08-26 18:59 | NUR ---
RN CLOSING NOTE Patient is resting in bed, A/O x4, showing no signs of acute distress or SOB, saturating >95% on 2L NC. JACKIE arm sling applied however, patient frequently removed arm sling stating she doesn't want to wear it because she is uncomfortable. After discussing the risks and benefits with the patient, she still refuses to wear JACKIE arm sling. IV line in the left hand #20g is clean and intact s/l. All patient needs met, all due medications given. Bed is in lowest position, side rails x3 in upright position, call light is within reach, fall safety and aspiration precautions enforced. Will endorse to night stocker.
[2019-08-26 20:00] VITALS: BP 132/72
[2019-08-26 20:06] VITALS: BP 132/72
--- NOTE | 2019-08-26 20:52 | NUR ---
RN NOTES RECEIVED PHONE CALL FROM DR. ZUÑIGA. NO SURGICAL INTERVENTION, PATIENT FOR POSSIBLE DISCHARGE HELENE IN THE MORNING TO USE SLING ON THE AFFECTED SIDE PER DR. ZUÑIGA. AM NURSE WILL PRINT A DISCHARGE COPY TO IN THE MORNING C/O AM NURSE. ADLS ONGOING ASSISTED BY KENNEL KEEPER. PAIN IS TOLERABLE PER PATIENT. WILL CONTINUE TO MONITOR.
[2019-08-26] MEDS: ZOLPIDEM TARTRATE 5 MG TABLET PO PRN (21:51)
[2019-08-27] MEDS: MORPHINE SULFATE INJ 2 MG/ML DISP.SYRIN IV PRN ×2 (00:39→08:09)
[2019-08-27] MEDS: IPRATROPIUM NEB FS 0.5 MG/2.5 ML AMPUL.NEB NEB SCH ×3 (03:30→11:03)
[2019-08-27] MEDS: ALBUTEROL HALF STRENGTH 1.25 MG/3 ML VIAL.NEB NEB SCH ×3 (03:30→11:03)
--- NOTE | 2019-08-27 07:22 | NUR ---
RN NOTES ALL NEEDS ATTENDED AND MET, ABLE TO REST AND SLEPT AT INTERVALS, PAIN IS TOLERABLE AT THIS TIME, SAFETY MEASURES IN PLACE, KEPT CLEAN WARM DRY AND COMFORTABLE, ENDORSED TO AM NURSE FOR CONTINUITY OF CARE.
--- NOTE | 2019-08-27 07:44 | NUR ---
RN OPENING NOTE Patient is resting in bed, A/O x4, showing no signs of acute distress or SOB, saturating >95% on room air. Patient refused to wear right arm sling. IV line in the left hand #20g is clean and intact s/l. Bed is in lowest position, side rails x3 in upright position, call light is within reach, fall safety and aspiration precautions enforced. Will continue with plan of care. .
[2019-08-27 08:00] VITALS: BP 125/69
[2019-08-27] MEDS: PANTOPRAZOLE 40 MG TABLET.DR PO SCH (08:09)
[2019-08-27] MEDS: DOCUSATE SODIUM 250 MG CAPSULE PO SCH (09:00)
[2019-08-27 09:08] VITALS: BP 125/69
[2019-08-27] MEDS: AMLODIPINE BESYLATE 5 MG TABLET PO SCH (09:08)
[2019-08-27] MEDS: METOPROLOL TARTRATE 25 MG TABLET PO SCH (09:08)
[2019-08-27] MEDS: INSULIN ASPART/LISPRO 100 UNIT/ML CARTRIDGE SQ SCH (09:09)
[2019-08-27] MEDS: FLUTICASONE/VILANTEROL 1 EACH BLST.W.DEV IH SCH (09:09)
[2019-08-27] MEDS: ENOXAPARIN SODIUM 120 MG/0.8 ML DISP.SYRIN SQ SCH (09:11)
[2019-08-27] MEDS ORDERED: ACET650S26 NG (09:43)
[2019-08-27] MEDS ORDERED: SIMV-46 PO (09:43)
[2019-08-27] MEDS ORDERED: DOCU250C14 PO (09:43)
[2019-08-27] MEDS ORDERED: PANT40TA2 PO (09:43)
[2019-08-27] MEDS ORDERED: POLY17PO4 PO (09:43)
[2019-08-27] MEDS ORDERED: ZOLP5TAB2 PO (09:43)
[2019-08-27] MEDS ORDERED: METO25TA20 PO (09:43)
[2019-08-27] MEDS ORDERED: INSU100C4 SQ (09:43)
--- NOTE | 2019-08-27 09:59 | NUR ---
RN NOTE Per Dr. Woods, to put 2 Lidocaine patches on patient's right shoulder before discharge.
[2019-08-27] MEDS ORDERED: LIDOCAINE 5% (PATCH) 1 EA PATCH TP SCH (10:00)
--- NOTE | 2019-08-27 12:11 | NUR ---
ASSISTANT FLOOR COVERING PRINTER NOTE Patient is medically stable for discharge. DC instructions provided and patient verbalized understanding. Skin assessed, photos taken and placed in chart. All belongings are with the patient. IV line removed, ID band removed. Right arm sling sent with patient, she refused to wear the sling at this time. Instructed the patient and daughter on how to put on arm sling. Patient left unit on wheelchair in private car with daughter en route to home.
== END 2019-08-27 11:55 | disposition home health service (06) | DRG 543 ==
LOC: ER 12:03 → MED 13:33
PROVIDERS: ADMIT Family Medicine; ATTEND Family Medicine
DX: M80.021A Age-related osteoporosis with current pathological fracture, right humerus, initial encounter for fracture (principal); E66.2 Morbid (severe) obesity with alveolar hypoventilation; J96.12 Chronic respiratory failure with hypercapnia; J96.11 Chronic respiratory failure with hypoxia; W18.30XA Fall on same level, unspecified, initial encounter; Y92.89 Other specified places as the place of occurrence of the external cause; S42.131A Displaced fracture of coracoid process, right shoulder, initial encounter for closed fracture; Z86.711 Personal history of pulmonary embolism; I10 Essential (primary) hypertension; E78.5 Hyperlipidemia, unspecified; E11.9 Type 2 diabetes mellitus without complications; J44.9 Chronic obstructive pulmonary disease, unspecified; Z86.73 Personal history of transient ischemic attack (TIA), and cerebral infarction without residual deficits; Z68.37 Body mass index [BMI] 37.0-37.9, adult; M17.0 Bilateral primary osteoarthritis of knee; M16.0 Bilateral primary osteoarthritis of hip; M19.012 Primary osteoarthritis, left shoulder; M19.011 Primary osteoarthritis, right shoulder; R32 Unspecified urinary incontinence; F32.9 Major depressive disorder, single episode, unspecified; F41.9 Anxiety disorder, unspecified; K59.00 Constipation, unspecified; R07.9 Chest pain, unspecified; G47.00 Insomnia, unspecified; Z86.718 Personal history of other venous thrombosis and embolism; Z79.01 Long term (current) use of anticoagulants; I25.10 Atherosclerotic heart disease of native coronary artery without angina pectoris; F03.90 Unspecified dementia, unspecified severity, without behavioral disturbance, psychotic disturbance, mood disturbance, and anxiety; K21.9 Gastro-esophageal reflux disease without esophagitis; G62.9 Polyneuropathy, unspecified; E03.9 Hypothyroidism, unspecified; F43.10 Post-traumatic stress disorder, unspecified
CPT/HCPCS: 36415; 36600; 71045-TC; 73030-TC; 73200-TC; 80048-TC; 80053-TC; 80061-TC; 81000-TC; 82550-TC; 82803-TC; 82962-TC; 83735-TC; 84443-TC; 85025-TC; 85378-TC; 85730-TC; 86850-TC; 87081-TC; 93970-TC; 93971-TC; 94799-TC; 97116-TC; 97530-TC; A4565; G0378; J1650; J1815; J2270; J2405; J3490